=== PATIENT | female | born 1990 | race Caucasian/White ===

== ENCOUNTER 2021-05-06 11:23 | Inpatient (IN) | payer OTHER, SELFPAY ==
[2021-05-06] VITALS (13 sets, daily range): BP systolic 133–170; BP diastolic 81–118; PULSE 118–150; RESP 18–35; TEMP 36.2–36.8; O2SAT 95–97; BMI 59.0; BMI 57.4
--- NOTE | ~2021-05-06 | CT_ITS ---
EXAMINATION: CT HEAD WITHOUT CONTRAST CLINICAL INFORMATION: Lethargy, confused. Left gaze preference. COMPARISON: None TECHNIQUE: Contiguous axial imaging was performed from the skull base to vertex without intravenous administration of contrast. This CT examination was performed using dose optimization techniques as appropriate, variously including the following: *Automated exposure control *Adjustment of mA and/or kV according to patient size (this includes techniques or standardized protocols for targeted exams where dose is matched to indication/reason for exam; i.e. extremities or head) *Use of iterative reconstruction technique DLP: 1057 mGy-cm FINDINGS: There is no evidence of acute intracranial hemorrhage or territorial infarction. No abnormal mass effect or midline shift is seen. Pelaez to white matter differentiation is well preserved. No extra-axial fluid collections are identified. The ventricles are normal in size. There is no abnormal attenuation within the brain parenchyma. The osseous structures and soft tissues are normal. The mastoid air cells and visualized portions of the paranasal sinuses are well aerated. CT/CT head/brain wo con IMPRESSION: No acute intracranial process seen.
--- NOTE | ~2021-05-06 | XR_ITS ---
EXAMINATION: CHEST AND KUB. CLINICAL INFORMATION: Tachypnea. COMPARISON: None TECHNIQUE: Chest one view. KUB 1u. FINDINGS: Chest: The lungs are hypoexpanded but clear of acute pneumonic process. The heart size and pulmonary vascularity is normal. There is moderate spondylosis dorsal spine. No lytic process. KUB: There is scattered stool and gas seen throughout the colon without any significant distention. There is no organomegaly. No radiopaque calculi. No gross bony abnormality. XR/XR chest 1V IMPRESSION: Hypoexpanded lungs with no acute process seen. Mild constipation. No acute process.
--- NOTE | ~2021-05-06 | XR_ITS ---
EXAMINATION: CHEST AND KUB. CLINICAL INFORMATION: Tachypnea. COMPARISON: None TECHNIQUE: Chest one view. KUB 1u. FINDINGS: Chest: The lungs are hypoexpanded but clear of acute pneumonic process. The heart size and pulmonary vascularity is normal. There is moderate spondylosis dorsal spine. No lytic process. KUB: There is scattered stool and gas seen throughout the colon without any significant distention. There is no organomegaly. No radiopaque calculi. No gross bony abnormality. XR/XR KUB IMPRESSION: Hypoexpanded lungs with no acute process seen. Mild constipation. No acute process.
--- NOTE | ~2021-05-06 | XR_ITS ---
EXAMINATION: XR CHEST CLINICAL INFORMATION: Dyspnea COMPARISON: Previous day TECHNIQUE: Frontal view of the chest was obtained. FINDINGS: Low lung volumes crowd the bronchovascular markings. Bibasilar subsegmental atelectasis. No discrete consolidation. No pleural effusion or pneumothorax. XR/XR chest 1V IMPRESSION: No focal consolidation.
--- NOTE | 2021-05-06 12:00 | ED.PSYCH ---
HPI - Psych General Chief Complaint: Weakness Stated Complaint: AMS COMING FROM INPT PSYCH FACILITY Time Seen by Provider: 05/06/21 11:32 Source: EMS and RN notes reviewed Mode of arrival: EMS Limitations: no limitations History of Present Illness HPI Narrative: 30 y/o female with history of major depressive disorder, bipolar disorder, PTSD, ADHD, opioid use disorder presents from [facility] in the inpatient psych with extreme lethargy, confusion, tremors that started this morning. She has been admitted at [facility] for since 04/06/2021 for SI and HI. Prior to that she was admitted at [facility]. Patient cannot provide a history due to lethargy. Her provided a provider report from [facility], patient was noted to have acute onset of extreme lethargy and confusion that started this morning. She was also slightly tremulous. They checked her glucose and her sugar was in the high 400s, she reportedly does not have a history of diabetes. MD complaint: other ( Altered mental status, lethargy.) Onset (ago): hour(s) Duration: constant History of same: No Relieving factors: none Exacerbating factors: none Associated psychiatric symptoms: suicidal ideation and homicidal ideation Associated symptoms: confusion Treatments prior to arrival: none Related Data Allergies Allergy/AdvReac Type Severity Reaction Status Date / Time Unable to Assess Allergy Unverified 05/06/21 12:01 Review of Systems Review of Systems: Yes Unobtainable due to mental condition and Unobtainable due to mental status PMFSH Past Medical History Attestation statement: The following information was validated with the patient. Medical History (Updated 05/06/21 @ 15:11 by SALOME Alex) Depression with suicidal ideation Opioid dependence in controlled environment Social History Social History Advance Directives: No Advance Directives Information Provided: Yes Physical Exam Vital Signs: Vital Signs: Last Vital Signs Pulse 118 H 05/06/21 12:43 Resp 18 05/06/21 12:07 BP 166/81 H 05/06/21 12:43 Pulse Ox 95 05/06/21 12:43 BMI result Body Mass Index 59.0 Appearance: Alert. Oriented X3. No acute distress. Eyes: Left eye deviation to the left. Pupils equal, round and reactive to light. ENT: Pharynx normal, mucus membranes are dry Neck: Normal inspection. Neck supple. CVS: Tachycardic, regular rhythm.Pulses normal. Respiratory: No respiratory distress. Respiratory rate slightly elevated in the low 20s. Breath sounds normal. Abdomen: Obese, Soft and nontender. +BS x4 Skin: Skin warm and dry. Normal skin color. Normal skin turgor. No rashes. Extremities: No lower extremity edema. no evidence of track alva in the upper extremities. Neuro: Arouses to noxious stimuli but does not maintain wakefulness, unable to verbalize. She does localize. Does not follow commands or answer questions. Course Course Course Narrative: 30-year-old female with history of depression, bipolar, PTSD who presents to the ER from inpatient psychiatric hospital at [facility] with acute onset of altered mental status that started this morning. Provider at [facility] reports extreme lethargy, confusion and some tremors that started this morning. Her glucose was found to be almost 500. She has no history of diabetes. Concern for possible DKA. her med list has been reviewed. She is on Depakote. Will check Depakote level as well as an ammonia level. Wheels get a CT scan of her head and get extensive metabolic workup. Reevaluation(s) Reevaluation #1: PH noted to be 7.07 Without any evidence of hypercarbia, indicative of metabolic acidosis. Glucose here 534. Patient most likely in diabetic ketoacidosis. Will give 5 units of IV insulin and start insulin infusion at 5 units an hour. Rest of her chemistry and toxicology is pending. Second IV placed, 2 L of IV fluid ordered. Reevaluation #2: Call from the lab that patient's blood is so lipophilic that they needed to dilute it several times notice her run her blood. Will add a triglyceride level and lipase. Unable to elicit any abdominal pain or tenderness given her mental status. Large acetone in the blood. Chemistry still pending. Case discussed with Dr. Goins will admit the patient to ICU level of care for metabolic acidosis due to DKA. Consultations Consultation #1: ICU Dr. Goins MDM - Psych Lab Data Result diagrams: 05/06/21 12:37 05/06/21 12:37 Labs: Lab Results 05/06/21 05/06/21 05/06/21 Range/Units 12:37 12:37 12:37 WBC 11.6 H (4.8-10.8) X10*3/uL RBC 5.53 H (4.20-5.50) X10*6/uL Hgb 15.4 (12.0-16.0) g/dl Hct 47.9 H (37.0-47.0) % MCV 86.6 (80.0-98.0) fL MCH 27.8 (27.0-33.0) pg MCHC 32.2 (31.0-35.0) g/dl RDW 14.0 (11.0-16.0) % Plt Count 353 (160-400) X10*3/uL MPV 10.9 (9.4-12.3) fL Immature Gran % (Auto) 2.5 H (0.0-0.4) % Neut % (Auto) 80.2 H (45-73) % Lymph % (Auto) 8.1 L (20-40) % Culberson % (Auto) 8.7 (2-11) % Eos % (Auto) 0.0 (0-4) % Baso % (Auto) 0.5 (0-2) % Lymph # (Auto) 0.9 L (1.2-4.9) X10*3/uL Culberson # (Auto) 1.0 (0.1-1.2) X10*3/uL Eos # (Auto) 0.0 (0.0-0.4) X10*3/uL Baso # (Auto) 0.1 (0.0-0.2) X10*3/uL Abs Immat Gran (auto) 0.29 H (0.00-0.03) X10*3/uL Absolute Neuts (auto) 9.3 H (2.0-8.3) x10*3/uL Absolute Nucleated RBC 0.000 (0.0-0.012) X10*3/uL Nucleated RBC % (auto) 0.0 (0.0-0.2) /100WBC VBG pH VBG pCO2 VBG pO2 VBG HCO3 VBG O2 Saturation VBG Base Excess Sodium 130 L (135-145) mmol/L Potassium 5.7 H (3.3-5.1) mmol/L Chloride 97 (96-108) mmol/L Carbon Dioxide 7 L* (22-29) mmol/L Anion Gap 32 H (12-20) BUN 12 (9-16) mg/dL Creatinine 1.78 H (0.5-1.4) mg/dL Estim Creat Clear Calc 77.5 Estimated GFR 34 POC Glucose (60-115) mg/dL Random Glucose 561 H* (60-115) mg/dL Estimat Average Glucose mg/dL Hemoglobin A1c % % Calcium 9.4 (8.4-10.2) mg/dL Magnesium 2.3 (1.6-2.6) mg/dL Total Bilirubin 0.2 (0.0-1.0) mg/dL Direct Bilirubin < 0.2 (0.0-0.5) mg/dL AST 46 H (5-31) U/L ALT 51 H (0-31) U/L Alkaline Phosphatase 156 H (39-117) U/L Ammonia Total Protein 10.4 H (6.5-8.0) g/dL Albumin 4.8 (3.5-5.0) g/dL Triglycerides 1650 mg/dL Lipase 434 H (8-78) U/L Salicylates < 5.0 L (15-30) mg/dL Acetaminophen < 1 (<30) mcg/mL Valproic Acid (50.0-100.0) mcg/mL Ethyl Alcohol mg/dL Acetone, Qual Large H (Negative) COVID-19 (KALYN) Negative (Negative) COVID-19 Clin Com See Note 05/06/21 05/06/21 05/06/21 Range/Units 12:37 12:37 12:37 WBC (4.8-10.8) X10*3/uL RBC (4.20-5.50) X10*6/uL Hgb (12.0-16.0) g/dl Hct (37.0-47.0) % MCV (80.0-98.0) fL MCH (27.0-33.0) pg MCHC (31.0-35.0) g/dl RDW (11.0-16.0) % Plt Count (160-400) X10*3/uL MPV (9.4-12.3) fL Immature Gran % (Auto) (0.0-0.4) % Neut % (Auto) (45-73) % Lymph % (Auto) (20-40) % Culberson % (Auto) (2-11) % Eos % (Auto) (0-4) % Baso % (Auto) (0-2) % Lymph # (Auto) (1.2-4.9) X10*3/uL [place]berson # (Auto) (0.1-1.2) X10*3/uL Eos # (Auto) (0.0-0.4) X10*3/uL Baso # (Auto) (0.0-0.2) X10*3/uL Abs Immat Gran (auto) (0.00-0.03) X10*3/uL Absolute Neuts (auto) (2.0-8.3) x10*3/uL Absolute Nucleated RBC (0.0-0.012) X10*3/uL Nucleated RBC % (auto) (0.0-0.2) /100WBC VBG pH VBG pCO2 VBG pO2 VBG HCO3 VBG O2 Saturation VBG Base Excess Sodium (135-145) mmol/L Potassium (3.3-5.1) mmol/L Chloride (96-108) mmol/L Carbon Dioxide (22-29) mmol/L Anion Gap (12-20) BUN (9-16) mg/dL Creatinine (0.5-1.4) mg/dL Estim Creat Clear Calc Estimated GFR POC Glucose (60-115) mg/dL Random Glucose (60-115) mg/dL Estimat Average Glucose mg/dL Hemoglobin A1c % % Calcium (8.4-10.2) mg/dL Magnesium (1.6-2.6) mg/dL Total Bilirubin (0.0-1.0) mg/dL Direct Bilirubin (0.0-0.5) mg/dL AST (5-31) U/L ALT (0-31) U/L Alkaline Phosphatase (39-117) U/L Ammonia TNP Total Protein (6.5-8.0) g/dL Albumin (3.5-5.0) g/dL Triglycerides mg/dL Lipase (8-78) U/L Salicylates (15-30) mg/dL Acetaminophen (<30) mcg/mL Valproic Acid 50.3 (50.0-100.0) mcg/mL Ethyl Alcohol < 10 mg/dL Acetone, Qual (Negative) COVID-19 (KALYN) (Negative) COVID-19 Clin Com 05/06/21 05/06/21 05/06/21 Range/Units 12:37 12:37 12:46 WBC (4.8-10.8) X10*3/uL RBC (4.20-5.50) X10*6/uL Hgb (12.0-16.0) g/dl Hct (37.0-47.0) % MCV (80.0-98.0) fL MCH (27.0-33.0) pg MCHC (31.0-35.0) g/dl RDW (11.0-16.0) % Plt Count (160-400) X10*3/uL MPV (9.4-12.3) fL Immature Gran % (Auto) (0.0-0.4) % Neut % (Auto) (45-73) % Lymph % (Auto) (20-40) % Culberson % (Auto) (2-11) % Eos % (Auto) (0-4) % Baso % (Auto) (0-2) % Lymph # (Auto) (1.2-4.9) X10*3/uL Culberson # (Auto) (0.1-1.2) X10*3/uL Eos # (Auto) (0.0-0.4) X10*3/uL Baso # (Auto) (0.0-0.2) X10*3/uL Abs Immat Gran (auto) (0.00-0.03) X10*3/uL Absolute Neuts (auto) (2.0-8.3) x10*3/uL Absolute Nucleated RBC (0.0-0.012) X10*3/uL Nucleated RBC % (auto) (0.0-0.2) /100WBC VBG pH Cancelled 7.07 L* VBG pCO2 Cancelled 25 VBG pO2 Cancelled 84 VBG HCO3 Cancelled 7 L VBG O2 Saturation Cancelled 91.0 VBG Base Excess Cancelled -20.6 Sodium (135-145) mmol/L Potassium (3.3-5.1) mmol/L Chloride (96-108) mmol/L Carbon Dioxide (22-29) mmol/L Anion Gap (12-20) BUN (9-16) mg/dL Creatinine (0.5-1.4) mg/dL Estim Creat Clear Calc Estimated GFR POC Glucose (60-115) mg/dL Random Glucose (60-115) mg/dL Estimat Average Glucose 243 mg/dL Hemoglobin A1c % 10.1 % Calcium (8.4-10.2) mg/dL Magnesium (1.6-2.6) mg/dL Total Bilirubin (0.0-1.0) mg/dL Direct Bilirubin (0.0-0.5) mg/dL AST (5-31) U/L ALT (0-31) U/L Alkaline Phosphatase (39-117) U/L Ammonia Total Protein (6.5-8.0) g/dL Albumin (3.5-5.0) g/dL Triglycerides mg/dL Lipase (8-78) U/L Salicylates (15-30) mg/dL Acetaminophen (<30) mcg/mL Valproic Acid (50.0-100.0) mcg/mL Ethyl Alcohol mg/dL Acetone, Qual (Negative) COVID-19 (KALYN) (Negative) COVID-19 Clin Com 05/06/21 Range/Units 12:57 WBC (4.8-10.8) X10*3/uL RBC (4.20-5.50) X10*6/uL Hgb (12.0-16.0) g/dl Hct (37.0-47.0) % MCV (80.0-98.0) fL MCH (27.0-33.0) pg MCHC (31.0-35.0) g/dl RDW (11.0-16.0) % Plt Count (160-400) X10*3/uL MPV (9.4-12.3) fL Immature Gran % (Auto) (0.0-0.4) % Neut % (Auto) (45-73) % Lymph % (Auto) (20-40) % Culberson % (Auto) (2-11) % Eos % (Auto) (0-4) % Baso % (Auto) (0-2) % Lymph # (Auto) (1.2-4.9) X10*3/uL [place] # (Auto) (0.1-1.2) X10*3/uL Eos # (Auto) (0.0-0.4) X10*3/uL Baso # (Auto) (0.0-0.2) X10*3/uL Abs Immat Gran (auto) (0.00-0.03) X10*3/uL Absolute Neuts (auto) (2.0-8.3) x10*3/uL Absolute Nucleated RBC (0.0-0.012) X10*3/uL Nucleated RBC % (auto) (0.0-0.2) /100WBC VBG pH VBG pCO2 VBG pO2 VBG HCO3 VBG O2 Saturation VBG Base Excess Sodium (135-145) mmol/L Potassium (3.3-5.1) mmol/L Chloride (96-108) mmol/L Carbon Dioxide (22-29) mmol/L Anion Gap (12-20) BUN (9-16) mg/dL Creatinine (0.5-1.4) mg/dL Estim Creat Clear Calc Estimated GFR POC Glucose 534 H* (60-115) mg/dL Random Glucose (60-115) mg/dL Estimat Average Glucose mg/dL Hemoglobin A1c % % Calcium (8.4-10.2) mg/dL Magnesium (1.6-2.6) mg/dL Total Bilirubin (0.0-1.0) mg/dL Direct Bilirubin (0.0-0.5) mg/dL AST (5-31) U/L ALT (0-31) U/L Alkaline Phosphatase (39-117) U/L Ammonia Total Protein (6.5-8.0) g/dL Albumin (3.5-5.0) g/dL Triglycerides mg/dL Lipase (8-78) U/L Salicylates (15-30) mg/dL Acetaminophen (<30) mcg/mL Valproic Acid (50.0-100.0) mcg/mL Ethyl Alcohol mg/dL Acetone, Qual (Negative) COVID-19 (KALYN) (Negative) COVID-19 Clin Com ECG Data Interpretation: not performed at the time of note completion. to be admitted to ICU - EKG to be completed there Critical Care Time Critical Care Time Critical Care Time: Yes Total Critical Care Time: 60 Attestation: I have personally provided critical care time exclusive of time spent on separately billable procedures. Time includes review of lab data, radiology results, discussion with consultants, and monitoring for potential decompensation. Intervention performed as documented. Discharge Plan Discharge Clinical Impression: Acute metabolic encephalopathy, Diabetes mellitus, new onset, Hypertriglyceridemia DKA (diabetic ketoacidosis) Qualifiers: Diabetes mellitus type: type 2 Diabetes mellitus complication detail: with coma Qualified Code(s): E11.11 - Type 2 diabetes mellitus with ketoacidosis with coma Patient Disposition: Admitted As Inpatient
[2021-05-06] MEDS: 0.9 % Sodium Chloride 1,000 ML 999 ML IVCONT ×2 (12:46→14:49)
[2021-05-06 12:47] LABS: MANUAL DIFF FLAG NO
[2021-05-06 12:48] LABS: Basophils Absolute Auto 0.1 X10*3/uL (0.0-0.2); Basophils Percent Auto 0.5 % (0-2); Hematocrit 47.9 % (37.0-47.0); Hemoglobin 15.4 g/dl (12.0-16.0); Imm Gran Abs Auto 0.29 X10*3/uL (0.00-0.03); Imm Gran Pct Auto 2.5 % (0.0-0.4); Lymphocytes Absolute Auto 0.9 X10*3/uL (1.2-4.9); Lymphocytes Percent Auto 8.1 % (20-40); Mean Corpuscular HGB Conc 32.2 g/dl (31.0-35.0); Mean Corpuscular Hemoglobin 27.8 pg (27.0-33.0); Mean Corpuscular Volume 86.6 fL (80.0-98.0); Mean Platelet Volume 10.9 fL (9.4-12.3); Monocytes Percent Auto 8.7 % (2-11); Neutrophils Absolute Auto 9.3 x10*3/uL (2.0-8.3); Neutrophils Percent Auto 80.2 % (45-73); Platelet Count 353 X10*3/uL (160-400); Red Blood Count 5.53 X10*6/uL (4.20-5.50); White Blood Count 11.6 X10*3/uL (4.8-10.8)
[2021-05-06 12:55] LABS: VBG Base Excess -20.6 mmol/L; VBG HCO3 7 mmol/L (22-26); VBG pCO2 25 mmHg; VBG pO2 84 mmHg
[2021-05-06 13:01] LABS: VBG pH 7.07 (7.32-7.43)
[2021-05-06 13:04] LABS: Venous Blood Gas Refer to POC result
[2021-05-06] MEDS: Insulin Regular, Human 100 UNIT/ML 3 ML VIAL IVPUSH (13:06)
[2021-05-06 13:09] LABS: COVID-19 Test Negative (Negative); IDNOW Serial# 9DD0AD1C
[2021-05-06 13:29] LABS: Glucose, Whole Blood 534 mg/dL (60-115)
[2021-05-06] MEDS: Insulin Regular/NS 100 UNIT/100 ML PLAST..BAG IVCONT ×2 (13:32→16:52)
--- NOTE | 2021-05-06 13:34 | ECG_ITS ---
Test Reason : dka Blood Pressure : / mmHG Vent. Rate : 126 BPM Atrial Rate : 126 BPM P-R Int : 138 ms QRS Dur : 094 ms QT Int : 316 ms P-R-T Axes : 048 056 026 degrees QTc Int : 457 ms Sinus tachycardia Otherwise normal ECG No previous ECGs available Referred By: Tiffanie Goins Electronically Signed By:THANG SAPP
--- NOTE | 2021-05-06 13:55 | P.HPCC_ITS ---
History of Present Illness Date of Service: 05/06/21 Attending physician on admission: Tiffanie Goins Chief Complaint: altered mental status 30-year-old female who is a psychiatric hospital inpatient for homicidal aunts and suicidal ideation on a combination of duloxetine and divalproex and alprazolam and is also on Suboxone no other significant medical history presents with altered mental status awake but clearly clearly delirious acutely hypertensive and tachycardic on initial blood work in especially because of hyper michell a patient was noted to have significant positive anion gap metabolic acidosis with respiratory compensation in other words secondary respiratory alkalosis pH still 7.07 chemistries pending glucose in the mid 500s so it appears that the patient is a diabetic ketoacidosis but given her background I do think in terms of solidifying the workup it is worth acetaminophen as well as salicylate levels as a may be some overlap along with lactate and in terms of precipitating issues I would look for infectious problem so cultures are called for and I would get a KUB for the distended abdomen as well as a baseline chest x-ray and then decide about further imaging down the line skin seems to be intact no evidence of a source of infection there and is no evidence of any inflammatory arthritis etc. and in the emergency room will initiate an insulin bolus and insulin drip along with aggressive normal saline Riggs will be placed we can get a more significant the drug screen Review of Systems Review of Systems: Yes Unobtainable due to mental status PMFSH Past Medical History Medical History (Updated 05/06/21 @ 14:01 by Tiffanie Goins MD) Depression with suicidal ideation Opioid dependence in controlled environment Meds Allergies Allergy/AdvReac Type Severity Reaction Status Date / Time Unable to Assess Allergy Unverified 05/06/21 12:01 Active Medications: Current Medications Sodium Chloride (Ns) 1,000 mls @ 999 mls/hr IVCONT .Q1H1M JASKARAN Stop: 05/06/21 14:00 Insulin Human Regular (Myxredlin) 100 unit in 100 mls @ 0 mls/hr IVCONT .Q0M JASKARAN; Protocol Last Admin: 05/06/21 13:32 Dose: 5 units/hr, 5 mls/hr Documented by: Pharmacy Consult (Consult Rx Perform Med Rec) 1 each MISCELLANE ONCE PRN PRN Reason: Consult order Physical Exam Vital Signs: Vital Signs: Last Vital Signs Pulse 118 H 05/06/21 12:43 Resp 18 05/06/21 12:07 BP 166/81 H 05/06/21 12:43 Pulse Ox 95 05/06/21 12:43 BMI result Body Mass Index 59.0 vital signs stable and she is nonfocal neurologically no evidence of any cranial neuropathy but cognitive function definitely impaired abdomen and somewhat distended diminished bowel sounds no palpable organomegal y chest without adventitious sounds cardiac exam no neck vein distension adequate bilateral carotid upstrokes no gallops skin is intact there are no breaks in the skin no cellulitis Results Labs CBC and Chem 7: 05/06/21 12:37 05/06/21 12:37 Labs: Laboratory Results - last 24 hr 05/06/21 05/06/21 05/06/21 12:37 12:37 12:37 MCV 86.6 MCH 27.8 MCHC 32.2 RDW 14.0 Plt Count 353 MPV 10.9 Immature Gran % (Auto) 2.5 H Neut % (Auto) 80.2 H Lymph % (Auto) 8.1 L Ceiba % (Auto) 8.7 Eos % (Auto) 0.0 Baso % (Auto) 0.5 Lymph # (Auto) 0.9 L Ceiba # (Auto) 1.0 Eos # (Auto) 0.0 Baso # (Auto) 0.1 Abs Immat Gran (auto) 0.29 H Absolute Neuts (auto) 9.3 H Absolute Nucleated RBC 0.000 Nucleated RBC % (auto) 0.0 VBG pH Cancelled VBG pCO2 Cancelled VBG pO2 Cancelled VBG HCO3 Cancelled VBG O2 Saturation Cancelled VBG Base Excess Cancelled POC Glucose COVID-19 (KALYN) Negative COVID-19 Clin Com See Note 05/06/21 05/06/21 12:46 12:57 MCV MCH MCHC RDW Plt Count MPV Immature Gran % (Auto) Neut % (Auto) Lymph % (Auto) Ceiba % (Auto) Eos % (Auto) Baso % (Auto) Lymph # (Auto) Ceiba # (Auto) Eos # (Auto) Baso # (Auto) Abs Immat Gran (auto) Absolute Neuts (auto) Absolute Nucleated RBC Nucleated RBC % (auto) VBG pH 7.07 L* VBG pCO2 25 VBG pO2 84 VBG HCO3 7 L VBG O2 Saturation 91.0 VBG Base Excess -20.6 POC Glucose 534 H* COVID-19 (KALYN) COVID-19 Clin Com Assessment and Plan (1) Acute metabolic encephalopathy: Status: Acute (2) DKA (diabetic ketoacidosis): Qualifiers: Diabetes mellitus complication detail: with coma Diabetes mellitus type: type 2 Qualified Code(s): E11.11 - Type 2 diabetes mellitus with ketoacidosis with coma Status: Acute (3) Diabetes mellitus, new onset: Status: Acute (4) Depression with suicidal ideation: Status: Acute (5) History of homicidal ideation: Status: Acute (6) Opioid dependence in controlled environment: Status: Acute aggressive normal saline and probable potassium possible phosphorus repla cement along with insulin drip culture surveillance as a precipitating issue and also to look for a complete toxicology be in a because of her suicidal ideation to be sure there is nothing else mass grading such as salicylate or acetaminophen toxicity etc.
[2021-05-06 14:12] LABS: Ethanol < 10 mg/dL
[2021-05-06 14:20] LABS: Valproate 50.3 mcg/mL (50.0-100.0)
[2021-05-06 14:23] LABS: Acetone, serum QL Large (Negative)
[2021-05-06 14:31] LABS: Acetaminophen LAB < 1 mcg/mL (<30); Lipase 434 U/L (8-78); Salicylate < 5.0 mg/dL (15-30)
[2021-05-06 14:35] LABS: Alanine Aminotransferase 51 U/L (0-31); Albumin Level 4.8 g/dL (3.5-5.0); Alkaline Phosphatase 156 U/L (39-117); Anion Gap 32 (12-20); Aspartate Amino Transferase 46 U/L (5-31); Bilirubin Direct < 0.2 mg/dL (0.0-0.5); Bilirubin Total 0.2 mg/dL (0.0-1.0); Chloride 97 mmol/L (96-108); Glucose Random 561 mg/dL (60-115); Potassium 5.7 mmol/L (3.3-5.1); Total Protein 10.4 g/dL (6.5-8.0)
[2021-05-06 14:36] LABS: Blood Urea Nitrogen 12 mg/dL (9-16); Calcium 9.4 mg/dL (8.4-10.2); Carbon Dioxide 7 mmol/L (22-29); Creatinine Clr Calc Pharmacy 77.5; Estimated Glomerular Filt Rate 34; Magnesium 2.3 mg/dL (1.6-2.6); Sodium 130 mmol/L (135-145)
[2021-05-06 14:53] LABS: Glucose, Whole Blood 469 mg/dL (60-115)
[2021-05-06] MEDS: Famotidine/PF 20 MG/2 ML VIAL IVPUSH ×2 (15:00→20:17)
[2021-05-06 15:06] LABS: Triglycerides 1650 mg/dL
[2021-05-06 15:12] LABS: Estimated Average Glucose 243 mg/dL; Hemoglobin A1c % 10.1 %
[2021-05-06] MEDS: Atropine Sulfate 1 % Ophth Sol 2 ML BOTTLE 1 DROP EYE-BOTH (16:31)
[2021-05-06] MEDS: 0.9 % Sodium Chloride 1,000 ML 150 ML IVCONT (16:32)
[2021-05-06 16:39] LABS: Total Protein 10.5 g/dL (6.5-8.0)
[2021-05-06 17:28] LABS: Glucose, Whole Blood 448 mg/dL (60-115)
[2021-05-06 17:30] LABS: Glucose, Whole Blood 377 mg/dL (60-115)
[2021-05-06] MEDS: Enoxaparin Sodium 40 MG/0.4 ML SYRINGE SUBCUT (18:09)
--- NOTE | 2021-05-06 18:25 | PHA.MEDREC ---
Pharmacy Consult ? Medication Reconciliation Pharmacy has completed the medication reconciliation.
[2021-05-06 18:27] LABS: Appearance Urine CLEAR; Color Urine STRAW; Glucose Urine UA 250 MG/DL (NEG); Leukocyte Esterase Urine NEG (NEG); Nitrite Urine NEG (NEG); PH 5.5 (5.0-8.0); Specific Gravity - Urine >= 1.030 (1.005-1.025); UACC Culture Trigger NO; Urine Blood 2+ (NEG); Urine Ketones >=80 MG/DL (NEG); Urine Protein 2+ MG/DL (NEG-TRACE)
[2021-05-06 18:28] LABS: Glucose, Whole Blood 423 mg/dL (60-115)
[2021-05-06 18:31] LABS: UPreg QC Valid YES; Urine Pregnancy NEGATIVE (NEGATIVE)
[2021-05-06 18:37] LABS: Lactic Acid 1.8 mmol/L (0.5-2.0)
[2021-05-06 18:46] LABS: Bacteria Urine TRACE /LPF; Granular Casts Urine 0-2 /LPF; Hyaline Casts Urine 0-2 /LPF; Mucus Urine 1+ /LPF; Squamous Epithelial Cell Urine 1+ /LPF; WBC Urine 0-2 /HPF (0-4)
[2021-05-06 19:20] LABS: Anion Gap 25 (12-20); Blood Urea Nitrogen 9 mg/dL (9-16); Calcium 8.3 mg/dL (8.4-10.2); Carbon Dioxide 6 mmol/L (22-29); Chloride 102 mmol/L (96-108); Creatinine Clr Calc Pharmacy 99.6; Estimated Glomerular Filt Rate 46; Glucose Random 401 mg/dL (60-115); Potassium 4.6 mmol/L (3.3-5.1); Sodium 128 mmol/L (135-145)
[2021-05-06 19:25] LABS: Triglycerides 4915 mg/dL
[2021-05-06 20:08] LABS: Glucose, Whole Blood 400 mg/dL (60-115)
[2021-05-06] MEDS: Sodium Bicarbonate 8.4% 50 MEQ/50 ML SYRINGE IVPUSH ×2 (20:17→23:42)
[2021-05-06 21:11] LABS: Glucose, Whole Blood 356 mg/dL (60-115)
[2021-05-06 22:10] LABS: Glucose, Whole Blood 356 mg/dL (60-115)
[2021-05-06] MEDS: KCl 40 mEq in 5% Dex/0.9% Sod 40 MEQ/1,000 ML IV.SOLN 150 MEQ IVCONT (22:54)
[2021-05-06 23:06] LABS: Glucose, Whole Blood 363 mg/dL (60-115)
[2021-05-06 23:09] LABS: Venous Blood Gas Refer to POC result
[2021-05-06 23:10] LABS: VBG Base Excess -22.8 mmol/L; VBG HCO3 6 mmol/L (22-26); VBG pCO2 20 mmHg; VBG pH 7.04 (7.32-7.43); VBG pO2 56 mmHg
[2021-05-06] MEDS: Metoprolol Tartrate 5 MG/5 ML VIAL IVPUSH (23:41)
[2021-05-06] MEDS: Insulin Regular/NS 100 UNIT/100 ML PLAST..BAG 14 UNIT IVCONT (23:42)
[2021-05-07] VITALS: BP 164/109; PULSE 140; RESP 29; O2SAT 96
[2021-05-07 00:01] LABS: Glucose, Whole Blood 406 mg/dL (60-115)
[2021-05-07 00:14] LABS: Alanine Aminotransferase 37 U/L (0-31); Alkaline Phosphatase 141 U/L (39-117); Anion Gap 26 (12-20); Aspartate Amino Transferase 30 U/L (5-31); Bilirubin Total 0.4 mg/dL (0.0-1.0); Blood Urea Nitrogen 9 mg/dL (9-16); Calcium 8.1 mg/dL (8.4-10.2); Carbon Dioxide 5 mmol/L (22-29); Chloride 112 mmol/L (96-108); Creatinine Clr Calc Pharmacy 85.2; Estimated Glomerular Filt Rate 38; Glucose Random 415 mg/dL (60-115); Potassium 4.9 mmol/L (3.3-5.1); Sodium 138 mmol/L (135-145); Total Protein 8.7 g/dL (6.5-8.0)
[2021-05-07] MEDS: LORazepam 2 MG/ML VIAL 0.5 MG IVPUSH ×2 (00:47→01:45)
[2021-05-07 00:56] LABS: Glucose, Whole Blood 370 mg/dL (60-115)
[2021-05-07 01:00] VITALS: BP 153/85; PULSE 156; RESP 39; O2SAT 95
[2021-05-07 01:29] LABS: Ammonia 48 umol/L (13-55)
[2021-05-07 01:41] LABS: VBG Base Excess -21.1 mmol/L; VBG HCO3 6 mmol/L (22-26); VBG pCO2 18 mmHg; VBG pO2 50 mmHg
[2021-05-07] MEDS: Metoprolol Tartrate 5 MG/5 ML VIAL IVPUSH (01:45)
[2021-05-07 01:55] LABS: Glucose, Whole Blood 371 mg/dL (60-115)
--- NOTE | 2021-05-07 01:58 | PM.CCN ---
Critical Care Event Note Summary Date of Service: 05/07/21 Code activated: No Narrative: This case had a high probability of a clinically significant, sudden, or life threatening deterioration of this patient's condition which required my full and direct attention, intervention and personal management. Critical Care Time (minutes): 60 Comment: Patient had gradual increase of heart rate up to the 160s, blood pressure rising in a similar pattern up into the 150 systolic. Pt is on chronic benzo's but hasn't rec'd any since she was admitted, we gave 0.5mg IV lorazepam x 2, 5mg IV push lopressor with no reduction in HR. Upon reviewing pt's paper records and verifying via phone call to Genevieve Sapp, she is on suboxone 8/2 TID and only had one dose yesterday morning at her facility. She has missed 2 doses. Clearly, she is in withdrawal from the suboxone. Will place pt on sublingual suboxone 8/2 TID and 0.5mg IV lorazepam BID to avoid withdrawal. Pt's pH went down to 7.04 and bicarb went down to 6 on VBG. Gave 50 mg bicarb x2 with no improvement in patient's bicarb. serum bicarb is down to 5. Increased insulin gtt from 10 to 20, changed fluids to include K. ammonia resulted at 48. pH is now up to 7.1, bicarb remains at 6. Continue to monitor chemistry panel.
[2021-05-07 02:00] VITALS: BP 154/119; PULSE 153; RESP 39; O2SAT 94
[2021-05-07 02:52] LABS: Glucose, Whole Blood 374 mg/dL (60-115)
[2021-05-07 02:56] VITALS: PULSE 165
[2021-05-07] MEDS: Esmolol HCl/NaCl Iso 2,500 MG/250 ML IV.SOLN 49.86 MG IVCONT (02:56)
[2021-05-07 02:58] LABS: Venous Blood Gas Refer to POC result
[2021-05-07 03:00] VITALS: BP 143/92; PULSE 154; RESP 48; O2SAT 95
[2021-05-07 04:00] VITALS: BP 208/141; PULSE 139; RESP 35; O2SAT 86
[2021-05-07 04:00] LABS: Glucose, Whole Blood 366 mg/dL (60-115)
[2021-05-07 04:09] LABS: VBG Base Excess -21.7 mmol/L; VBG HCO3 6 mmol/L (22-26); VBG pCO2 22 mmHg; VBG pH 7.06 (7.32-7.43); VBG pO2 77 mmHg
[2021-05-07 04:12] LABS: Venous Blood Gas Refer to POC result
[2021-05-07] MEDS: Insulin Regular/NS 100 UNIT/100 ML PLAST..BAG 24 UNIT IVCONT (04:20)
[2021-05-07 04:42] LABS: Amphetamine Screen Urine Not Detected (Not Detect); Barbiturates, Urine Not Detected (Not Detect); Benzodiazepines Screen Urine POSITIVE (Not Detect); Cannabinoid Screen Urine Not Detected (Not Detect); Cocaine Screen Urine Not Detected (Not Detect); Fentanyl, urine Not Detected (Not Detect); Opiate Screen Urine Not Detected (Not Detect); Phencyclidine Screen Urine Not Detected (Not Detect)
[2021-05-07 04:43] LABS: Triglycerides 4180 mg/dL
--- NOTE | 2021-05-07 05:00 | PM.DDS ---
Discharge Sum: Prov Provider Primary care physician: Unknown Physician Admitting clinician: Tiffanie Goins Attending physician on admission: Tiffanie Goins Pronouncing clinician: Adrienne Prather Discharge Sum: Diag PCOD Cause of : Cardiopulmonary arrest Contributing Factors (1) Acute metabolic encephalopathy: (2) DKA (diabetic ketoacidosis): (3) Diabetes mellitus, new onset: (4) Depression with suicidal ideation: (5) History of homicidal ideation: (6) Opioid dependence in controlled environment: (7) Cerebral edema: Contributing factors: with likely brainstem herniation (8) Hypophosphatasia: (9) Hypertriglyceridemia: Discharge Sum: Summary Date and Time Date of admission: 05/06/21 13:49 Date of : 05/07/21 Time of : 04:54 Summary Details: Pt was meant to be transferred to a tertiary facility however both [facility] and [facility] declined the patient because they had no beds. Pt was hyperproteinemia and concern for cerebral edema, serum viscosity pending at [facility]. time of admission, cerebral edema was ruled out as no papilledema was noted. head CT was negative. Pt had intractable ketoacidosis, hypophosphatemia but her mental status seemed to be improving. patient required increasing insulin, fluids were bolused and then running at 150 per hour but pH and bicarb were not responding appropriately. concern for secondary process adding to the acidosis, I called [facility] patient was transferred from, the assured me she could not have gotten into anything such as antifreeze because it is a locked facility. Utox was negative, salicylates negative, no access to alcohol, no diarrhea. Patient had a sudden change in her mental status, was found to have both pupils dilated, patient was guppy breathing , pt's HR was in the low 100's. We do not have the results on the serum viscosity, it has been sent to [facility] however no results yet. Our lab states [facility] only runs that test on Saturday and Fridays. I spoke with Dr. Goins, he advised to change fluids to lactated Ringer's with 100 mEq of sodium bicarb, give 12.5 mg mannitol and get head CT stat. We were able to give the mannitol when patient's HR za'd down to 60's then she was found to be in PEA. Code Blue was called, Dr. Jung came to the bedside to intubate pt while I ran the code. We did chest compressions, gave 2 rounds of bicarb, 7 rounds of epi with no ROSC. Pt likely herniated. US revealed no cardiac activity, no pulse detected, no heartsounds appreciated. at 4:54am, after 24 mins of CPR, pt was pronounced. Additional Data Confirmation of as documented by pronouncing clinician: no pulse, no respirations, no heart sounds and pupils fixed and dilated Family: contacted (Isabela Farris) Attending/PCP notified?: Yes Attending physician: Tiffanie Goins MD Was code activated?: Yes Autopsy requested?: No driver examiner notified?: Yes (declined case) Organ bank notified?: Yes Advance directives: No Hospice patient?: No
[2021-05-07 05:01] LABS: Alanine Aminotransferase 29 U/L (0-31); Albumin Level 3.3 g/dL (3.5-5.0); Alkaline Phosphatase 117 U/L (39-117); Aspartate Amino Transferase 38 U/L (5-31); Bilirubin Direct 0.4 mg/dL (0.0-0.5); Bilirubin Total 0.7 mg/dL (0.0-1.0); Blood Urea Nitrogen 11 mg/dL (9-16); Calcium 7.6 mg/dL (8.4-10.2); Carbon Dioxide < 5 mmol/L (22-29); Chloride 117 mmol/L (96-108); Creatinine Clr Calc Pharmacy 63.3; Estimated Glomerular Filt Rate 27; Glucose Random 445 mg/dL (60-115); Lipase 939 U/L (8-78); Magnesium 2.3 mg/dL (1.6-2.6); Phosphorus 0.9 mg/dL (2.7-4.5); Potassium 5.4 mmol/L (3.3-5.1); Sodium 138 mmol/L (135-145); Total Protein 7.6 g/dL (6.5-8.0)
[2021-05-07 05:24] LABS: Osmolality, Serum 327 mosm/kg (281-305)
--- NOTE | 2021-05-07 06:48 | PC.NURSE ---
Upon initial assessment at 2000- pt alert but did not follow commands or track movement, +C/G and pain response. Throughout shift, HR increased from 130-160s, with no improvement from esmolol drip. Insulin drip titrated per emar with minimal improvement. Given total 1mg IVP ativan and suboxone with no effect. At approx 0400- pt with AMS, dilated pupils, agonal breathing, SBP 200s. New order for head CT, 12.5g IVP mannitol, change in IVF per emar. Prior to these interventions, pt HR dropped to 60's, PEA on monitor. Code blue called- see paper documentation, no ROSC. Time of 0454. [facility] called, declined, see documentation.
[2021-05-08 11:19] LABS: ABG Base Excess -23.8 mmol/L; ABG HCO3 4 mmol/L (22-26); ABG pCO2 13 mmHg (32-45); ABG pCO2 TC 13 mmHg (32-45); ABG pH 7.05 (7.35-7.45); ABG pH TC 7.06 (7.35-7.45); ABG pO2 105 mmHg (83-108); ABG pO2 TC 100 (83-108)
[2021-05-09 22:47] LABS: Prot Elec - Albumin 4.9 g/dL (3.8-4.8); Prot Elec - Alpha1 0.3 g/dL (0.2-0.3); Prot Elec - Alpha2 0.8 g/dL (0.5-0.9); Prot Elec - Beta 1 0.5 g/dL (0.4-0.6); Prot Elec - Beta 2 0.4 g/dL (0.2-0.5); Prot Elec - Gamma 1.5 g/dL (0.8-1.7); Prot Elec - Total Protein 8.3 g/dL (6.1-8.1)
--- NOTE | 2021-06-02 14:00 | P.CDIR_ITS ---
Documented by User: Eda Chester RN 06/02/21 14:04 Retrospective Query PHYSICIAN'S DOCUMENTATION REQUEST Date of Query: 06/02/21 1401 Patient Name: NIKKI MERIDA Admit Date: 05/06/21 Dear Doctor, A review of the medical record indicates additional documentation may be needed. Please review below and update the documentation accordingly. Clinical Indicators: Risk Factors/Clinical Indicators/Treatments Per discharge summary note 05/07/21: guppy breathing , cardiopulmonary arrest Intubated as per Resuscitation report 05/07/21 Recognized standard criteria for respiratory failure includes: (Source: [facility] Hospitalist Feb 2013) ABGs (1 or more) Symptoms: ? PO2 <60 or RA SpO2 <91% ? Tachypnea, SOB, dyspnea ? PcO2 >50 and pH <7.35 ? Pallor or cyanosis ? pO2 decrease or pcO2 increase ? Anxiety or restlessness by 10 mm/Hg from baseline if known ? Use of accessory muscles ? Retractions (grunting in newborns) ? Unable to speak in complete sentences P/F ratio < 300 Supplemental O2 requirement of 40% or more Intubation is not required Clarify which of the following accurately represents the patient's respiratory status: * Acute respiratory failure * Acute respiratory distress * Hypoxia * Other (please specify) * Unable to determine Please include type if known: * Hypoxic * Hypercapnic * Hypoxic and hypercapnic * Unable to determine Use of terms such as suspected, likely, concern for, or probable (associated with a specific diagnosis that is being evaluated, monitored, or treated as if it exists) are acceptable and can be coded in the inpatient setting, when documented at the time of discharge. Thank you, Eda Chester RN Extension: [phone] Please use your independent medical judgment in providing your response. THIS QUERY IS PART OF THE PERMANENT MEDICAL RECORD Documented by User: Tiffanie Goins MD 07/22/21 10:39 Retrospective Query PHYSICIAN'S DOCUMENTATION REQUEST Date of Query: 06/02/21 1401 Patient Name: NIKKI MERIDA Admit Date: 05/06/21 Dear Doctor, A review of the medical record indicates additional documentation may be needed. Please review below and update the documentation accordingly. Clinical Indicators:respiratory failure based on hypopnea/apnea based on progressive ARDS and metabolic acidosis Risk Factors/Clinical Indicators/Treatments Per discharge summary note 05/07/21: guppy breathing , cardiopulmonary arrest Intubated as per Resuscitation report 05/07/21 Recognized standard criteria for respiratory failure includes: (Source: [facility] Hospitalist Feb 2013) ABGs (1 or more) Symptoms: ? PO2 <60 or RA SpO2 <91% ? Tachypnea, SOB, dyspnea ? PcO2 >50 and pH <7.35 ? Pallor or cyanosis ? pO2 decrease or pcO2 increase ? Anxiety or restlessness by 10 mm/Hg from baseline if known ? Use of accessory muscles ? Retractions (grunting in newborns) ? Unable to speak in complete sentences P/F ratio < 300 Supplemental O2 requirement of 40% or more Intubation is not required Clarify which of the following accurately represents the patient's respiratory status: * Acute respiratory failure * Acute respiratory distress * Hypoxia * Other (please specify) * Unable to determine Please include type if known: * Hypoxic * Hypercapnic * Hypoxic and hypercapnic * Unable to determine Use of terms such as suspected, likely, concern for, or probable (associated with a specific diagnosis that is being evaluated, monitored, or treated as if it exists) are acceptable and can be coded in the inpatient setting, when documented at the time of discharge. Thank you, Eda Chester RN Extension: [phone] Please use your independent medical judgment in providing your response. THIS QUERY IS PART OF THE PERMANENT MEDICAL RECORD Provider Response: Acute Kidney Failure
== END 2021-05-07 07:07 | disposition expired | DRG 637 ==
LOC: HO.ED 15:36 → HO.EDOVER 15:40 → HO.ICU 15:57
PROVIDERS: Physician Assistant; Admitting Provider Internal Medicine Cardiovascular Disease; Emergency Provider Emergency Medicine; Visit Provider Internal Medicine Cardiovascular Disease
DX: E11.11 Type 2 diabetes mellitus with ketoacidosis with coma (principal); G93.41 Metabolic encephalopathy; G93.5 Compression of brain; R45.851 Suicidal ideations; F11.23 Opioid dependence with withdrawal; E78.1 Pure hyperglyceridemia; F32.A Depression, unspecified; Z20.822 Contact with and (suspected) exposure to COVID-19; Z79.899 Other long term (current) drug therapy
CPT/HCPCS: 36415; 36600; 70450; 71045; 74018; 80048; 80053; 80076; 80143; 80164; 80179; 80307; 81001; 81025; 82009; 82077; 82140; 82803; 82947; 83036; 83605; 83690; 83735; 83930; 84100; 84155; 84165; 84478; 85025; 85810; 87040; 87071; 87086; 87147; 87635; 93005; 99285; C1758; J0171; J0461; J1650; J2060